=== PATIENT | female | born 1995 | race African-American/Black ===

== ENCOUNTER 2021-01-20 03:40 | Emergency (ER) | payer SELFPAY ==
[~2021-01-20] VITALS: Ht 172.7 cm; Wt 138.1 kg
--- NOTE | 2021-01-20 03:54 | PHYS DOC ---
Adult General HPI HPI Patient is a 26-year-old female who presents to the emergency department via EMS after drinking alcohol, intoxicated. EMS states that they first saw her as she was intoxicated and her friends called 911 to help her get up the stairs to their apartment. States that they called EMS back shortly after as they felt she was too drunk and needed to go to the emergency department. EMS stated that when they first arrived she was pleasant and giggly then on the way to the emergency department became angry and quit answering questions. (YESENIA OCONNOR MD) Review of Systems Review of Systems Review of systems otherwise unremarkable except noted in HPI (YESENIA OCONNOR MD) Physical Exam Physical Exam Constitutional: Well developed, well nourished, no acute distress, non-toxic appearance. [] HENT: Normocephalic, atraumatic, Eyes: conjunctiva normal, no discharge. [] Neck: Normal range of motion, Cardiovascular: Sinus tachycardia Lungs & Thorax: Bilateral breath sounds clear to auscultation [] Abdomen: soft, no tenderness, no masses, no pulsatile masses. [] Skin: Warm, dry, no erythema, no rash. [] Back: No tenderness, no CVA tenderness. [] Extremities: No tenderness, no cyanosis, no clubbing, ROM intact, no edema. [] Neurologic: On arrival patient was awake alert and crying and when asked what was wrong stated she just was upset, shortly after went to sleep but was arousable, patient able to walk to the restroom Psychologic: Affect normal, judgement abnormal, mood tearful (YESENIA OCONNOR MD) EKG EKG [] (YESENIA OCONNOR MD) Radiology/Procedures Radiology/Procedures [] (YESENIA OCONNOR MD) Heart Score C/O Chest Pain: No Risk Factors: Risk Factors: DM, Current or recent (<one month) smoker, HTN, HLP, family history of CAD, obesity. Risk Scores: Risk Factors: DM, Current or recent (<one month) smoker, HTN, HLP, family history of CAD, obesity. (YESENIA OCONNOR MD) Course & Med Decision Making Course & Med Decision Making Patient is a 26-year-old female who presents to the emergency department via EMS after coming intoxicated Vital signs notable for tachycardia. Physical exam noted above. Blood sugar normal. Patient arousable, but wanting to sleep Patient's friend arrived to the emergency department and tried to awaken her but, she did not want to get up [] (YESENIA OCONNOR MD) Course & Med Decision Making Pt was signed out to me at shift change by Dr. Oconnor, concern for alcohol in toxication. Pt now awake, alert, with steady gait medical decision making capacity. Is clinically sober. Patient with no active complaints. Physical exam consistent with no signs of trauma. Will discharge home with strict ED return precautions were given for head injury, trauma or SI/HI. Encouraged urgent outpatient follow-up with PMD for routine care. Life-threatening process es were considered but are low suspicion at this time, given history, physical exam and ED workup. Pt was educated on all prescription medications and adverse effects. All patient's questions were answered and pt was stable at time of discharge. Life/limb-threatening differential includes but is not limited to, end organ damage/sepsis, trauma/abuse/neglect, neurologic deficit, alcohol/drug ingestion, toxidrome, suicidal/homicidal ideations plans or attempts, psychosis or mental illness resulting in self neglect and inability to care for self. I have spoken with the patient and/or caregivers. I explained the patient's condition, diagnoses and treatment plan based on the information available to me at this time. I have answered the patient and/or caregiver's questions and addressed any concerns. The patient and/or caregivers have a good understanding of patient's diagnosis, condition and treatment plan as can be expected at this point. Vital signs have been stable. Patient's condition is stable and appr opriate for discharge from the emergency department. Patient will pursue further outpatient evaluation with primary care physician or other designated or consulting physician as outlined in the discharge instructions. The patient and/or caregivers are agreeable to this plan of care and follow-up instructions have been explained in detail. The patient and/or caregivers have received these instructions in written form and have expressed an understanding of the discharge instructions. The patient and/or caregivers are aware that any significant change of condition or worsening of symptoms should prompt immediate return to this or the closest emergency department or call to 911. (PATIENCE PAULINO DO) Dragon Disclaimer Dragon Disclaimer This electronic medical record was generated, in whole or in part, using a voice recognition dictation system. (YESENIA OCONNOR MD) Departure Departure: Impression: Primary Impression: Alcohol intoxication Disposition: HOME / SELF CARE / HOMELESS Condition: STABLE Referrals: PCP,SUSY (PCP) AMIRA QUICK Patient Instructions: Alcohol Intoxication, Alcohol Problems Additional Instructions: Thank you for coming into the emergency department tonight and allowing us to take care of you. Please read all the attached information above to go over hunter e of the things we talked about and understand more about alcohol. Please drink in moderation as drinking as much you did is unsafe and can lead to serious injury, disability and . Please call your primary care physician on Thursday or call the primary care physician at the number provided to discuss your ED visit and alcohol issues. Please come back to the ED with new or concerning symptoms. [employer] FOR SUBSTANCE ABUSE MANAGEMENT/EDUCATION NEEDED [address] [place] [address] 24-hour crisis line: [phone] YESENIA OCONNOR MD Jan 20, 2021 03:54 PATIENCE GREWAL DO Jan 20, 2021 07:21
[2021-01-20 04:13] VITALS: BP 148/100
[2021-01-20] MEDS ORDERED: DIPH,PERTUSS(ACELL),TET VAC/PF 0.5 ML SYRINGE. VAX IM ONE (06:30)
== END 2021-01-20 11:56 | disposition home or self-care (01) ==
LOC: ER 03:40
DX: F10.129 Alcohol abuse with intoxication, unspecified (principal); Y90.9 Presence of alcohol in blood, level not specified
CPT/HCPCS: 81025; 82947; 90471; 90715; 99283-25